=== PATIENT | female | born 1975 | race Caucasian/White ===

== ENCOUNTER 2020-02-13 01:20 | Outpatient (CLI) | payer OTHER, SELFPAY ==
[2020-02-13 19:20] LABS: SARS-CoV-2 RNA PCR Negative
== END 2020-02-13 01:21 | disposition home or self-care (01) ==
LOC: ANHCOVIDDT 01:20
PROVIDERS: PCP Family Medicine; Visit Provider Internal Medicine Gastroenterology
DX: Z01.812 Encounter for preprocedural laboratory examination (principal); Z20.828 Contact with and (suspected) exposure to other viral communicable diseases
CPT/HCPCS: 87635; C9803; U0003

== ENCOUNTER 2020-02-15 01:10 | Day surgery (SDC) | payer OTHER, SELFPAY ==
[2020-02-08 10:27] VITALS: BMI 31.7
[2020-02-15 10:56] VITALS: BP 134/79; PULSE 74; RESP 18; TEMP 36.6; O2SAT 97; BMI 41.4
--- NOTE | 2020-02-15 11:00 | P.PNAN_ITS ---
Anes - Initial Pre Proc Eval Procedure: Operation Date: 02/15/20 12:00 Proposed Procedures p Esophagogastroduodenoscopy & Colonoscopy - Manuel Huynh MD Date/Time: 02/15/20 11:00 Surgeon: Manuel Huynh MD Pre Op Diagnosis: Constipation/ Bright Red Blood Per Rectum/Nausea Patient Data Age: 44 Gender: F Height: 1.7 m Weight: 92 kg Allergies Allergy/AdvReac Type Severity Reaction Status Date / Time ciprofloxacin Allergy Unknown swollen Verified 02/15/20 10:50 tendons codeine Allergy Unknown sick Verified 02/15/20 10:50 Home Medications Medication Instructions Recorded Confirmed Type levothyroxine 150 mcg tablet 150 mcg PO DAILY #90 each 08/07/19 02/15/20 Rx clonazepam 0.5 mg tablet 0.5 mg PO DAILY PRN #30 tablet 01/01/20 02/08/20 Rx gabapentin 300 mg capsule 1,200 mg PO BID #240 cap 01/03/20 02/15/20 Rx peg 3350-electrolytes 236 240 ml PO Q10M #4000 ml 01/28/20 Rx gram-22.74 gram-6.74 gram-5.86 gram solution kzagyfc-bpackngpkcshm-qfmysrvx 1 tablet PO Q4-6H PRN 02/08/20 02/08/20 History [Excedrin Extra Strength] naproxen-pseudoephedrine [Aleve-D 1 tablet PO BID PRN 02/08/20 02/08/20 History Sinus and Headache] ondansetron HCl 8 mg PO .Q-8 PRN 02/08/20 02/08/20 History venlafaxine 150 mg 150 mg PO DAILY #90 each 02/14/20 02/15/20 Rx capsule,extended release 24 hr Patient hx anesthesia problems: none Family hx anesthesia problems: none PMFSH Social History Social History Smoking status: Never smoker Alcohol intake: current Drinks per week: 4 Alcohol use details: GLASSES WINE Substance use: never Substance use type: does not use Living arrangements: with family Gender identity (if verbalized by the patient): Female Spiritual care concerns: No Anes - Eval Final PreProcedure Day of Procedure 02/15/20 11:00 Patient weight: obese Heart: regular rate and rhythm Lungs: clear to auscultation and normal air movement Airway: Mallampati scale class II Neurological: alert and oriented Last oral intake: >/= 8 hours ASA classification: II Emergent: no Anesthetic plan: proceed Anesthesia type and monitoring: general GIVS Informed Consent: The patient's anesthetic plan and its attendant risks and kaveh efits were discussed with the patient/family/POA. Questions were solicited and answers provided to the satisfaction of the patient/family/POA.
[2020-02-15] MEDS: LACTATED RINGERS 1,000 ML 150 ML IV CONT (11:02)
--- NOTE | 2020-02-15 12:15 | PM.HPGS ---
History of Present Illness History of Present Illness Consent: Risks, benefits, and alternatives have been discussed and questions answered. Patient agrees to proceed with procedure. Chief complaint: Constipation/ Bright Red Blood Per Rectum/Nausea Narrative: Rajni Mixon is a 44 year old female with gerd and need for colon screening. Review of Systems Constitutional: Constitutional: Denies headache(s) and Denies weakness Eyes: Eyes: Denies blurry vision ENT: Reports Normal hearing present, Denies headache(s) and Denies neck pain Cardiovascular: Cardiovascular: Denies chest pain and Denies dyspnea Respiratory: Respiratory: Denies dyspnea Gastrointestinal: Gastrointestinal: Reports no additional gastrointestinal complaints Genitourinary: Genitourinary: Denies dysuria Musculoskeletal: Musculoskeletal: Denies neck pain Integumentary/Breasts: Skin/Breast: Denies dry skin Neurologic: Reports Normal hearing present, Denies headache(s) and Denies weakness Psychiatric: Psychiatric: Denies anxiety Endocrine: Endocrine: Denies change in body appearance Hematologic/Lymphatic: Hematologic/Lymphatic: Denies easy bleeding Allergic/Immunologic: Allergic/Immunologic: Denies urticaria PMFSH Social History Social History Smoking status: Never smoker Alcohol intake: current Drinks per week: 4 Alcohol use details: GLASSES WINE Substance use: never Substance use type: does not use Living arrangements: with family Gender identity (if verbalized by the patient): Female Spiritual care concerns: No Meds Home Medications and Allergies Home Medications Medication Instructions Recorded Confirmed Type levothyroxine 150 mcg tablet 150 mcg PO DAILY #90 each 08/07/19 02/15/20 Rx clonazepam 0.5 mg tablet 0.5 mg PO DAILY PRN #30 tablet 01/01/20 02/08/20 Rx gabapentin 300 mg capsule 1,200 mg PO BID #240 cap 01/03/20 02/15/20 Rx peg 3350-electrolytes 236 240 ml PO Q10M #4000 ml 01/28/20 Rx gram-22.74 gram-6.74 gram-5.86 gram solution rwiqmbu-rspbuimcugnat-rhrqucqu 1 tablet PO Q4-6H PRN 02/08/20 02/08/20 History [Excedrin Extra Strength] naproxen-pseudoephedrine [Aleve-D 1 tablet PO BID PRN 02/08/20 02/08/20 History Sinus and Headache] ondansetron HCl 8 mg PO .Q-8 PRN 02/08/20 02/08/20 History venlafaxine 150 mg 150 mg PO DAILY #90 each 02/14/20 02/15/20 Rx capsule,extended release 24 hr Allergies Allergy/AdvReac Type Severity Reaction Status Date / Time ciprofloxacin Allergy Unknown swollen Verified 02/15/20 10:50 tendons codeine Allergy Unknown sick Verified 02/15/20 10:50 Vital Signs Vital Signs - 24 hr 02/15/20 10:56 Temperature 97.8 F Pulse Rate 74 Respiratory Rate 18 Blood Pressure 134/79 Pulse Oximetry 97 Exam Const: General: comfortable and no acute distress HENMT: General nose exam: Normal nares present Eyes: General: appearance normal, both eyes and all related structures Neck: Neck: no JVD Resp: Auscultation: clear to auscultation bilaterally Cardio: Rate: regular rate Rhythm: regular rhythm GI: Inspection: non-distended GI Palp: Yes Soft to palpation Skin: General skin exam: normal color Neuro: General: gait normal Speech: normal speech Extrem: General: normal to inspection Psych: Mental Status: mental status grossly normal Assessment and Plan Assessment and plan (1) Nausea: Code(s): R11.0 - Nausea Status: Acute Assessment and Plan: egd (2) GERD (gastroesophageal reflux disease): Code(s): K21.9 - Gastro-esophageal reflux disease without esophagitis Status: Acute (3) Colon cancer screening: Code(s): Z12.11 - Encounter for screening for malignant neoplasm of colon Status: Acute Assessment and Plan: proceed with colonoscopy
[2020-02-15] MEDS: BENZOCAINE (*SP) 60 ML SPRAY CAN (HURRICAINE) 1 SPRAY MUCOUS MEM (12:40)
[2020-02-15 12:42] VITALS: BP 125/78; PULSE 83; RESP 14; O2SAT 97
[2020-02-15 12:52] VITALS: BP 127/87; PULSE 71; RESP 14; O2SAT 97
[2020-02-15 13:02] VITALS: BP 137/94; PULSE 67; RESP 13; O2SAT 97
== END 2020-02-15 13:27 | disposition home or self-care (01) ==
PROVIDERS: PCP Family Medicine; Visit Provider Internal Medicine Gastroenterology
PROC: 0DJ08ZZ Inspection of Upper Intestinal Tract, Via Natural or Artificial Opening Endoscopic (ICD-10-PCS; CPT 43235; principal; 2020-02-15 12:00)
DX: Z12.11 Encounter for screening for malignant neoplasm of colon (principal); D12.5 Benign neoplasm of sigmoid colon; K57.30 Diverticulosis of large intestine without perforation or abscess without bleeding; K64.8 Other hemorrhoids; R11.0 Nausea; K21.9 Gastro-esophageal reflux disease without esophagitis; K25.9 Gastric ulcer, unspecified as acute or chronic, without hemorrhage or perforation; K29.50 Unspecified chronic gastritis without bleeding
CPT/HCPCS: 45385; 43239; 88305; J2704; J7120

== ENCOUNTER 2020-04-29 06:52 | Outpatient (NON) | payer OTHER, SELFPAY ==
[2020-04-30 10:35] LABS: Influenza Control Positive
== END 2020-04-29 06:53 ==
LOC: ANHCOVIDDT 07:12
PROVIDERS: PCP Family Medicine; Visit Provider Family Medicine
DX: J02.9 Acute pharyngitis, unspecified (principal)
CPT/HCPCS: 87804

== ENCOUNTER 2020-06-26 08:48 | Emergency (ER) | payer OTHER, SELFPAY ==
--- NOTE | ~2020-06-26 | XR_ITS ---
EXAMINATION: XR chest 1V portable EXAM DATE: 06/26/2020 10:18 INDICATION: Shortness of breath, high blood pressure. TECHNIQUE: Portable AP frontal chest x-ray was obtained. There is no prior study for comparison. FINDINGS: The lungs are clear. There are no pleural effusions. The cardiomediastinal silhouette is within normal limits. There is no pneumothorax suspected. The bones and soft tissues are unremarkab le. IMPRESSION: Unremarkable chest x-ray exam. Reviewed, dictated and finalized at location A. EXPANDER
[2020-06-26 08:57] VITALS: BP 186/114; PULSE 88; RESP 16; TEMP 35.9; O2SAT 97
--- NOTE | 2020-06-26 09:10 | ECG_ITS ---
Measurements Intervals [place] Rate: 74 P: 27 NH: 176 QRS: 4 QRSD: 102 T: 28 QT: 377 QTc: 420 Interpretive Statements SINUS RHYTHM NORMAL ECG Electronically Signed On 06-26-2020 10:27:49 OTOLARYNGOLOGY PHYSICIAN by Kwadwo Quiñonez D.O.
[2020-06-26 09:17] LABS: Basophils Absolute Auto 0.1 K/mm3 (0.0-0.1); Basophils Percent Auto 0.7 % (0.2-1.2); Eosinophils Absolute Auto 0.2 K/mm3 (0-0.3); Hematocrit 43.6 % (37.0-47.0); Hemoglobin 14.6 g/dL (12.0-15.0); Immature Granulocyte Absolute 0.03 K/mm3 (0.00-0.031); Immature Granulocyte Percent A 0.4 % (0-0.5); Lymphocytes Absolute Auto 2.95 K/mm3 (0.9-3.2); Lymphocytes Percent Auto 35.2 % (18.3-44.2); Mean Corpuscular HGB Conc 33.5 g/dl (32-36); Mean Corpuscular Hemoglobin 30.9 pg (26-34); Mean Corpuscular Volume 92.4 fl (80-100); Mean Platelet Volume 9.6 fl (7.4-10.4); Monocytes Absolute Auto 0.5 K/mm3 (0.1-0.6); Neutrophils Absolute Auto 4.7 K/mm3 (1.3-6.7); Neutrophils Percent Auto 55.7 % (45.5-73.1); Platelet Count Result 309 k/mm3 (150-375); Red Blood Count 4.72 M/mm3 (4.2-5.4); Red Cell Distribution Width 12.6 % (11.5-14.5); White Blood Count 8.4 K/mm3 (4.5-10.0)
[2020-06-26] MEDS: SODIUM CHLORIDE 0.9% IV 1,000 ML 999 ML IV CONT (09:50)
[2020-06-26 09:58] LABS: Basophils Absolute Auto 0.1 K/mm3 (0.0-0.1); Basophils Percent Auto 0.9 % (0.2-1.2); Eosinophils Absolute Auto 0.1 K/mm3 (0-0.3); Eosinophils Percent Auto 1.9 % (0-4.4); Hematocrit 40.8 % (37.0-47.0); Hemoglobin 13.6 g/dL (12.0-15.0); Immature Granulocyte Absolute 0.02 K/mm3 (0.00-0.031); Immature Granulocyte Percent A 0.3 % (0-0.5); Lymphocytes Absolute Auto 2.25 K/mm3 (0.9-3.2); Lymphocytes Percent Auto 32.9 % (18.3-44.2); Mean Corpuscular HGB Conc 33.3 g/dl (32-36); Mean Corpuscular Hemoglobin 30.7 pg (26-34); Mean Corpuscular Volume 92.1 fl (80-100); Mean Platelet Volume 9.3 fl (7.4-10.4); Monocytes Absolute Auto 0.5 K/mm3 (0.1-0.6); Monocytes Percent Auto 6.6 % (2.6-8.5); Neutrophils Absolute Auto 3.9 K/mm3 (1.3-6.7); Neutrophils Percent Auto 57.4 % (45.5-73.1); Platelet Count Result 261 k/mm3 (150-375); Red Blood Count 4.43 M/mm3 (4.2-5.4); Red Cell Distribution Width 12.6 % (11.5-14.5); White Blood Count 6.8 K/mm3 (4.5-10.0)
[2020-06-26 10:08] LABS: Alanine Aminotransferase 30 U/L (4-35); Alkaline Phosphatase 74 U/L (38-126); Anion Gap 5 mmol/L (8-16); Aspartate Amino Transferase 31 U/L (14-36); Bilirubin,Total 0.5 mg/dL (0.2-1.3); Blood Urea Nitrogen 8 mg/dL (7-17); CRP 1.1 mg/dL (<1.0); Calcium 8.5 mg/dL (8.4-10.2); Carbon Dioxide 27 mmol/L (22-30); Chloride 105 mmol/L (98-107); Estimated CRCL calculation 105 ml/min; Estimated Glomerular Filt Rate > 60; Glucose 121 mg/dL (65-105); Lipase 101 U/L (23-300); Sodium 137 mmol/L (137-145)
[2020-06-26 10:17] LABS: INR 0.9; Prothrombin Time 12.8 Seconds (11.1-14.7)
[2020-06-26 10:22] LABS: Troponin I < 0.012 ng/mL (0.000-0.034)
[2020-06-26 10:35] LABS: Partial Thromboplastin Time 25.2 SECONDS (22.3-36.8)
[2020-06-26 10:41] LABS: Add Urine Microscopic? YES; Appearance Urine Clear (Clear); Bacteria Urine Trace /hpf; Bilirubin Urine Negative (Negative); Blood Urine Negative (Negative); Color Urine Yellow (Yellow); Glucose Urine UA Negative (Negative); Ketones Urine Negative (Negative); Leukocyte Esterase Ur Negative LEU/UL (Negative); Mucus Urine Rare /lpf; Nitrate Urine Negative (Negative); Protein Urine 1+ mg/dL (Negative); Specific Grav Ur 1.021 (1.001-1.035); Squamous Epithelial Cell Urine Many /hpf (Few); Urobilinogen Urine Negative mg/dL (<2.0)
--- NOTE | 2020-06-26 11:20 | ED.GENADULT ---
HPI - General Adult General Chief complaint: Dizziness Stated complaint: Dizzy Time Seen by Provider: 06/26/20 09:07 Source: patient Mode of arrival: ambulatory Limitations: no limitations History of Present Illness HPI narrative: Patient is a 45-year-old female who presents with mild upper respiratory symptoms for the last several days starting with ear discomfort on the left and is now having some mild dizziness congestion slight discomfort of the throat nonproductive cough patient notes some nausea which she describes as chronic denies vomiting diarrhea rectal bleeding melena denies urinary symptoms but notes history of urinary tract infections. Patient on arrival is nondistressed resting comfortably in the room Related Data Home Medications Medication Instructions Recorded Confirmed faerxax-amnylypiwkkkh-lixncbmc 1 tablet PO Q4-6H PRN 02/08/20 02/08/20 [Excedrin Extra Strength] Allergies Allergy/AdvReac Type Severity Reaction Status Date / Time ciprofloxacin Allergy Unknown swollen Verified 06/26/20 08:59 tendons codeine Allergy Unknown sick Verified 06/26/20 08:59 Review of Systems Review of Systems: All systems reviewed & are unremarkable except as noted in HPI and below PMFSH Past Medical History Medical History Anxiety BRBPR (bright red blood per rectum) Chronic constipation Colon cancer screening GERD (gastroesophageal reflux disease) Nausea Surgical History Surgical History H/O section Family History Family History Grandparent Family history of cardiovascular disease Cerebrovascular accident Family history of malignant neoplasm of brain Social History Social History Smoking status: Never smoker Alcohol intake: current Drinks per week: 4 Substance use: never Substance use type: does not use Gender identity (if verbalized by the patient): Female Spiritual care concerns: No Exam Narrative: Exam Narrative: GENERAL: Well-appearing, obese, and in no acute distress. HEAD: Normocephalic, atraumatic. EYES: PERRLA and EOMI. ENT: Nares clear, no rhinorrhea or epistaxis. Mucous membranes moist. CHEST: Clear to auscultation. No respiratory distress. No wheezes rales or rhonchi HEART: Regular rate and rhythm. No murmur heard. Normal peripheral pulses. ABDOMEN: Soft, nontender, distended EXTREMITIES: Normal range of motion. No edema. SKIN: Warm, dry, no rash. NEURO: No focal deficits. Alert and oriented x3. Cranial nerves II through XII grossly intact PSYCH: Normal mood and affect. Course Course Emergency Course: Patient in the room evaluated for his symptoms no high risk changes in the blood work or imaging will be sent home with plan for further evaluation by her primary care was swabbed for Covid will self quarantine until she has received results provided with reasons to return felt appropriate for outpatient reevaluation of her URI symptoms Vital Signs Vital signs: Vital Signs Temperature 96.6 F L 06/26/20 08:57 Pulse Rate 88 06/26/20 08:57 Respiratory Rate 16 06/26/20 08:57 Blood Pressure 186/114 H 06/26/20 08:57 Pulse Oximetry 97 06/26/20 08:57 Temperature 96.6 F L 06/26/20 08:57 Pulse Rate 88 06/26/20 08:57 Respiratory Rate 16 06/26/20 08:57 Blood Pressure 186/114 H 06/26/20 08:57 Pulse Oximetry 97 06/26/20 08:57 Medical Decision Making MDM Narrative Medical decision making narrative: Patient with normal vital signs ABCs intact and stable felt appropriate for outpatient reevaluation no hypoxemia no high risk changes in the blood work or imaging will be advised to follow with primary care for further evaluation at this time patient presented with URI symptoms and will be managed for these as the
[2020-06-26 11:52] VITALS: BP 157/99; PULSE 72; RESP 12; O2SAT 99
[2020-06-27 01:27] LABS: SARS-CoV-2 RNA PCR Negative
== END 2020-06-26 11:54 | disposition home or self-care (01) ==
PROVIDERS: Emergency Medicine Emergency Medical Services; Emergency Provider Emergency Medicine; PCP Family Medicine
DX: J06.9 Acute upper respiratory infection, unspecified (principal); Z20.822 Contact with and (suspected) exposure to COVID-19; K21.9 Gastro-esophageal reflux disease without esophagitis
CPT/HCPCS: 36415; 71045; 80053; 81001; 83690; 84484; 85025; 85610; 85730; 86140; 93005; 96360; 96361; 99284; C9803; J7030; U0003; U0005

== ENCOUNTER 2021-04-14 10:05 | Emergency (ER) | payer OTHER, SELFPAY ==
--- NOTE | ~2021-04-14 | XR_ITS ---
EXAMINATION: XR chest 1V portable DATE: 04/14/2021 12:08 INDICATION: Shortness of breath and cough. TECHNIQUE: A single frontal view of the chest was obtained. COMPARISON: Chest single view 06/26/2020 FINDINGS: The chest demonstrates clear lungs without pneumonia, pleural effusion, or pneumothorax. Th e heart size is normal. IMPRESSION: 1. No acute cardiopulmonary disease. Reviewed, dictated and finalized at location A. [employer]BLER
[2021-04-14 10:08] VITALS: BP 181/101; PULSE 88; RESP 16; TEMP 36.7; O2SAT 98
[2021-04-14 12:29] LABS: Basophils Percent Auto 0.4 % (0.2-1.2); Eosinophils Absolute Auto 0.1 K/mm3 (0-0.3); Eosinophils Percent Auto 0.8 % (0-4.4); Hematocrit 42.7 % (37.0-47.0); Hemoglobin 14.2 g/dL (12.0-15.0); Immature Granulocyte Absolute 0.01 K/mm3 (0.00-0.031); Immature Granulocyte Percent A 0.1 % (0-0.5); Lymphocytes Absolute Auto 3.44 K/mm3 (0.9-3.2); Lymphocytes Percent Auto 46.1 % (18.3-44.2); Mean Corpuscular HGB Conc 33.3 g/dl (32-36); Mean Corpuscular Hemoglobin 31.1 pg (26-34); Mean Corpuscular Volume 93.6 fl (80-100); Mean Platelet Volume 8.8 fl (7.4-10.4); Monocytes Absolute Auto 0.5 K/mm3 (0.1-0.6); Neutrophils Absolute Auto 3.4 K/mm3 (1.3-6.7); Neutrophils Percent Auto 45.6 % (45.5-73.1); Platelet Count Result 243 k/mm3 (150-375); Red Blood Count 4.56 M/mm3 (4.2-5.4); Red Cell Distribution Width 12.4 % (11.5-14.5); White Blood Count 7.5 K/mm3 (4.5-10.0)
[2021-04-14 12:33] LABS: Add Urine Microscopic? YES; Appearance Urine Cloudy (Clear); Bilirubin Urine Negative (Negative); Blood Urine Negative (Negative); Color Urine Yellow (Yellow); Glucose Urine UA Negative (Negative); Ketones Urine Negative (Negative); Leukocyte Esterase Ur Negative LEU/UL (Negative); Nitrate Urine Negative (Negative); Protein Urine 1+ mg/dL (Negative); Specific Grav Ur 1.019 (1.001-1.035); Squamous Epithelial Cell Urine Few /hpf (Few); WBC Urine 0-3 /hpf
[2021-04-14 12:34] LABS: Alanine Aminotransferase 41 U/L (4-35); Albumin Level 4.4 g/dL (3.5-5.1); Alkaline Phosphatase 74 U/L (38-126); Anion Gap 8 mmol/L (8-16); Aspartate Amino Transferase 44 U/L (14-36); Bilirubin,Total 0.5 mg/dL (0.2-1.3); Blood Urea Nitrogen 7 mg/dL (7-17); Calcium 8.7 mg/dL (8.4-10.2); Carbon Dioxide 25 mmol/L (22-30); Chloride 103 mmol/L (98-107); Estimated CRCL calculation 114 ml/min; Estimated Glomerular Filt Rate > 60; Glucose 112 mg/dL (65-110); Potassium 3.9 mmol/L (3.4-5.0); Sodium 136 mmol/L (137-145)
--- NOTE | 2021-04-14 14:02 | ED.URI ---
HPI - URI/Sore Throat General Chief Complaint: Upper Respiratory Infection Stated Complaint: flu like symptoms Time Seen by Provider: 04/14/21 11:08 Source: patient Mode of arrival: ambulatory Limitations: no limitations History of Present Illness HPI Narrative: 45-year-old with no major medical problems here with complaints of sore throat, ear pain, body aches fever and chills for past 1 week. She states that 7-year-old has URI symptoms. 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 She also states that she has been immunized against Covid. MD elicited complaint: fever, cough, sore throat, rhinorrhea and nasal congestion Onset (ago): week(s) (1) Consistency: constant Description of mucous: watery Able to tolerate fluids by mouth: Yes Exacerbating factors: nothing Relieving factors: nothing Associated symptoms: fever, chills, rhinorrhea and nasal congestion Treatments prior to arrival: none Related Data Home Medications Medication Instructions Recorded Confirmed nrofsqr-jhrnjfjdpussj-fkniqchb 1 tablet PO Q4-6H PRN 02/08/20 10/06/20 [Excedrin Extra Strength] Allergies Allergy/AdvReac Type Severity Reaction Status Date / Time ciprofloxacin Allergy Unknown swollen Verified 04/14/21 11:29 tendons codeine Allergy Unknown sick Verified 04/14/21 11:29 Review of Systems Review of Systems: All systems reviewed & are unremarkable except as noted in HPI and below Constitutional: Constitutional: Reports no additional constitutional complaints Eyes: Eyes: Reports no additional eye complaints ENT: Reports as per HPI Cardiovascular: Cardiovascular: Reports no additional cardiovascular complaints Respiratory: Respiratory: Reports cough Gastrointestinal: Gastrointestinal: Reports no additional gastrointestinal complaints Genitourinary: Genitourinary: Reports no additional female genitourinary complaints Musculoskeletal: Musculoskeletal: Reports no additional musculoskeletal complaints Integumentary/Breasts: Skin/Breast: Reports system reviewed and no additional complaints, except as docu Neurologic: Reports system reviewed and no additional complaints, except as documented Psychiatric: Psychiatric: Reports no additional psychiatric complaints Endocrine: Endocrine: Reports no additional endocrine complaints Hematologic/Lymphatic: Hematologic/Lymphatic: Reports no additional hematologic/lymphatic complaints PMFSH Past Medical History Medical History Anxiety BRBPR (bright red blood per rectum) Chronic constipation Colon cancer screening GERD (gastroesophageal reflux disease) Hypothyroid Nausea Surgical History Surgical History H/O section Family History Family History Grandparent Family history of cardiovascular disease Cerebrovascular accident Family history of malignant neoplasm of brain Social History Social History Smoking status: Never smoker Second hand tobacco smoke exposure: No Alcohol intake: current Drinks per week: 4 Alcohol use details: GLASSES WINE Substance use: never Substance use type: does not use Gender identity (if verbalized by the patient): Female Spiritual care concerns: No Agree to blood products: Yes Exam Narrative: GENERAL: Well-appearing, well-nourished, and in no acute distress. HEAD: Normocephalic, atraumatic. EYES: PERRLA and EOMI. ENT: Both TMs are normal NECK: Supple. CHEST: Clear to auscultation. No respiratory distress. HEART: Regular rate and rhythm. No murmur heard. Normal peripheral pulses. ABDOMEN: Soft, nontender, nondistended, normal active bowel sounds. EXTREMITIES: Normal range of motion. No edema. SKIN: Warm,
[2021-04-14] MEDS: HYDROmorphone HCL INJ (*CRX) 1 MG/ML SYR IM (14:10)
[2021-04-14 14:11] VITALS: BP 141/62; PULSE 82; RESP 16; TEMP 37.1; O2SAT 100
== END 2021-04-14 14:12 | disposition home or self-care (01) ==
PROVIDERS: Emergency Provider Family Medicine; PCP Family Medicine
DX: J06.9 Acute upper respiratory infection, unspecified (principal); B34.9 Viral infection, unspecified; K21.9 Gastro-esophageal reflux disease without esophagitis; E03.9 Hypothyroidism, unspecified
CPT/HCPCS: 36415; 71045; 80053; 81001; 85025; 96372; 99283; J1170

== ENCOUNTER 2024-12-20 02:06 | Day surgery (SDC) | payer OTHER, SELFPAY ==
--- OUTSIDE RECORDS SUMMARY | 2024-12-20 02:08 | XMS_ITS | Encounter Summary ---
Author Organization [facility] Address [facility] [place] [address] Care Team Providers Care Certified Personal Trainer Name Role Phone Armando Mendoza DESKIDDING MACHINE OPERATOR Primary Care Provider Unavail able Eryn Jennings DO Primary Care Provider [phone] Encounter Details Date Type Department Care Team (Late st Contact Info) Description 03/16/2016 Abstract [facility] CONVERSION [address] [place] [address] , Generic Conversion, Social History Tobacco Use Types Packs/Day Years Used Date Smoking Tobacco: Never Assessed Comments Unknown Sex and Gender Information Value Date Recorded Sex Assigned at Not on file Legal Sex Female 7:52 PM CDT Gender Identity Not on file Sexual Orientation Not on file documented as of this encounter Plan of Treatment Not on file documented as of this encounter Visit Diagnoses Not on filedocumented in this encounter Care Teams Certified Personal Trainer Relationship Specialty Start Date End Date Armando Mendoza NP PCP - General 02/10/16 04/16/19 Eryn Jennings DO PCP - General FAMILY PRACTICE 04/17/19 documented as of this encounter
--- OUTSIDE RECORDS SUMMARY | 2024-12-20 02:08 | XMS_ITS | Clinical Summary ---
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 Gender Identity Not on file Sexual Orientation Not on file Plan of Treatment Health Maintenance Due Date Last Done Comments Hepatitis C Virus (HCV) Screening 1973 TdaP Immunization 1973 Hepatitis B Immunization (1 of 3 - 19+ 3-dose series) 1992 Pap Smear 1994 Cervical Cancer Screening (CCS) 2003 HPV/Cotest 2003 Colonoscopy 2018 Colorectal Cancer Screening 2018 Cologuard 2023 Immunochemical Fecal Occult Blood 2023 Mammogram 2023 Pneumococcal Immunization (5 0+ years) (1 of 1 - PCV) 2023 Zoster Immunization (1 of 2) 2023 Influenza Immunization (#1) 2024 SARS-COV-2 Immunization ( - 2023- season) 2024 06/13/2020, 05/23/2020 Respiratory Syncytial Virus (RSV) Immunization (Adult) (1 - 1-dose 75+ series) 2048 Meningococcal Immunization (ACWY) Aged Out No longer eligible b ased on patient's age to complete this topic Pneumococcal Immunization Combined Aged Out No longer eligible b ased on patient's age to complete this topic Rotavirus Immunization Aged Out No lo nger eligible based on patient's age to complete this topic
--- OUTSIDE RECORDS SUMMARY | 2024-12-20 02:08 | XMS_ITS | Clinical Summary ---
Author Organization [facility] Address [facility] [place] [address] Care Team Providers Care Hand Cooper Helper Name Role Phone Eryn Jennings DO Primary Care Provider [phone] Allergies Active Allergy Reactions Criticality Noted Date Comments Ciprofloxacin Other (see comment) 04/17/2019 Tendons ruptured Medications gabapentin 300 MG capsule TAKE 4 CAPSULES BY MOUTH TWICE DAILY 0 04/10/2019 Active levothyroxine 150 MCG tablet 03/27/2019 Acti ve venlafaxine XR 75 MG 24 hr capsule Take 1 capsule by mouth daily. 10/22/2015 Active Active Problems Problem Noted Date Diagnosed Date Depression with anxiety 10/22/2015 Overview (04/17/2019): Transitioned From: Adjustment disorder with anxiety Nephrolithiasis 12/09/2014 Hypertension 08/07/2014 Hypothyroidism 08/07/2014 Social History Tobacco Use Types Packs/Day Years Used Date Smoking Tobacco: Never Smokeless Tobacco: Never Alcohol Use Standard Drinks/Week Comments Yes 0 (1 standard drink = 0.6 oz pur e alcohol) AUDIT-C Answer Date Recorded Frequency of Alcohol Consumption Never 04/17/2019 Average Number of Drinks Not on file 019 Frequency of Binge Drinking Not on file 04/06 Comments No Sex and Gender Information Value Date Recorded Sex Assigned at Not on file Legal Sex Female 7:52 PM CDT Gender Identity Not on file Sexual Orientation Not on file Last Filed Vital Signs Vital Sign Reading Time Taken Comments Blood Pressure 138/100 04/17/2019 3:06 PM [employer] SERVICES MANAGER Pulse 84 04/17/2019 3:06 PM [employer] AND [employer] SERVICES MANAGER Temperature 36.9 C (98.5 F) 04/17/2019 3:06 PM CAR[employer] AND R[employer] SERVICES MANAGER Respiratory Rate 18 04/17/2019 3:06 PM [employer] AND R[employer] SERVICES MANAGER Oxygen Saturation 98% 04/17/2019 3:06 PM CAR[employer] AND R[employer] SERVICES MANAGER Inhaled Oxygen Concentration - - Weight 117.2 kg (258 lb 6.4 oz) 04/17/2019 3:06 PM CAR[employer] AND R[employer] SERVICES MANAGER Height 170.2 cm (5' 7) 04/17/2019 3:06 PM CAR[employer] SERVICES MANAGER Body Mass Index 40.47 04/17/2019 3:06 PM CAR[employer] AND R[employer] SERVICES MANAGER Plan of Treatment Health Maintenance Due Date Last Done Comments Cervical Cancer Screening Pa p Smear (Age 30 to 64) Every 3 Years 1973 Colorectal Cancer Screening Colonoscopy (10 Years) 1973 Annual Physical 1976 Hepatitis C 1991 DTaP, Tdap and Td Vaccines ( 1 - Tdap) 1992 Hepatitis B Vaccines (1 of 3 - 19+ 3-dose series) 1992 Cervical Cancer Screening Pa p with HPV Testing (Age 30 to 64) Every 5 Years 2003 Cervical Cancer Screening with HPV 2003 Mammogram Screening 2013 Pneumococcal Vaccine: 50+ Ye ars (1 of 1 - PCV) 2023 Zoster Vaccines (1 of 2) 2023 COVID-19 Vaccine (1 - 2023-2 5 season) 2024 Meningococcal B Vaccine Aged Out No l onger eligible based on patient's age to complete this topic Meningococcal Vaccine Aged Out No luis f cookie eligible based on patient's age to complete this topic RSV Immunizations Under 20 Months Aged Out No longer eligible based on patient's age to complete this topic [place] [address] [place] [address] Care Teams Hand Cooper Helper Relationship Specialty Start Date End Date Eryn Jennings DO PCP - General FAMILY PRACTICE 04/17/19
[2024-12-20 12:02] VITALS: BP 136/98; PULSE 66; RESP 18; TEMP 36.4; O2SAT 100
[2024-12-20 12:07] LABS: BEDSIDEPREGUCG Negative (Negative)
[2024-12-20] MEDS: LACTATED RINGERS 1,000 ML 150 ML IV CONT (12:14)
--- NOTE | 2024-12-20 12:30 | P.PNAN_ITS ---
Anes - Initial Pre Proc Eval Procedure: Operation Date: 12/20/24 13:00 Proposed Procedures p Screening Colonoscopy - Manuel Huynh MD Date/Time: 12/20/24 12:30 Surgeon: Manuel Huynh MD Pre Op Diagnosis: neoplasm screening Patient Data Age: 49 Gender: F Height: 1.7 m Weight: 119.4 kg Last Vital Signs Temp 97.6 F 12/20/24 12:02 Pulse 66 12/20/24 12:02 Resp 18 12/20/24 12:02 BP 136/98 H 12/20/24 12:02 Pulse Ox 100 12/20/24 12:02 O2 Del Method Room Air 12/20/24 12:02 Allergies Allergy/AdvReac Type Severity Reaction Status Date / Time ciprofloxacin Allergy Unknown swollen Verified 12/11/24 11:42 tendons codeine Allergy Unknown sick Verified 12/11/24 11:42 Home Medications ?Medication ?Instructions ?Recorded ?Confirmed ?Type hqwmwyh-rjzmcqlbornbq-ispppsir 250 1 tablet PO Q4-6H PRN Pain 02/08/20 12/11/24 History mg-250 mg-65 mg tablet (Excedrin Extra Strength) sumatriptan succinate 100 mg See Rx Instructions PO .COMPLEX 12/29/21 12/11/24 Rx tablet (Imitrex) #27 tabs gabapentin 300 mg capsule See Rx Instructions .Route 04/25/23 12/20/24 Rx .COMPLEX #360 caps amlodipine 5 mg tablet 5 mg PO DAILY #90 tabs 09/13/24 12/20/24 Rx levothyroxine 137 mcg tablet 137 mcg PO DAILY #90 tabs 09/13/24 12/20/24 Rx ondansetron HCl 8 mg tablet See Rx Instructions .Route 09/18/24 12/11/24 Rx .COMPLEX #30 tabs venlafaxine 75 mg capsule,extended 225 mg (3 x 75 mg) PO DAILY #270 10/15/24 12/20/24 Rx release 24 hr caps clonazepam 1 mg tablet 1 mg PO Q12H PRN anxiety #30 tabs 12/10/24 12/20/24 Rx gabapentin 600 mg tablet See Rx Instructions .Route 12/10/24 12/20/24 Rx .COMPLEX #120 tabs Laboratory Tests 12/20/24 12:05 POC Urine HCG, Qual Negative (Negative) Patient hx anesthesia problems: none Family hx anesthesia problems: none Results Review: All pre-operative results and documents have been reviewed as part of the pre- operative evaluation. [facility] Past Medical History Medical History Hypothyroid Anxiety GERD (gastroesophageal reflux disease) Chronic constipation Nausea Surgical History Surgical History H/O section Family History Family History Grandparent Family history of cardiovascular disease Cerebrovascular accident Family history of malignant neoplasm of brain Social History Social History Social History: 09/10/24 very confident with medical forms Smoking status: Never smoker Second hand tobacco smoke exposure: No Alcohol intake: current Drinks per week: 2 Alcohol use details: GLASSES WINE Substance use: never Substance use type: does not use Do You Feel Safe in your Home?: Yes Lack of Transportation: No Lack of Food: Never True Current Housing: I Have Housing Concerned About Future Housing: No Difficulty Paying Gas/Electric Bills: No Difficulty Paying for Meds: No Currently Unemployed: No Education: Bachelor's Degree Difficulty w/ Childcare or Family Care: No Living arrangements: with family Occupation/Education: occupation Gender identity (if verbalized by the patient): Female Spiritual care concerns: No Agree to blood products: Yes Anes - Eval Final PreProcedure Day of Procedure 12/20/24 12:30 Patient weight: morbidly obese Lungs: normal air movement Airway: Mallampati scale class II Neurological: alert and oriented Last oral intake: >/= 8 hours ASA classification: III Emergent: no Anesthetic plan: proceed Anesthesia type and monitoring: general GIVS and standard monitoring Results Review: All pre-operative results and documents have been reviewed as part of the pre- operative evaluation. BMI 41, HTN, hypothyroidism, walks several miles, 4 x week, no cp or sob. Informed Consent: The patient's anesthetic plan and its attendant risks and benefits were discu ssed with the patient/family/POA. Questions were solicited and answers provided to the satisfaction of the patient/family/POA.
--- NOTE | 2024-12-20 12:43 | PM.HPGS ---
History of Present Illness History of Present Illness Consent: Risks, benefits, and alternatives have been discussed and questions answered. Patient agrees to proceed with procedure. Chief complaint: neoplasm screening Narrative: Rajni Mixon is a 49 year old female with colon polyp in 2019 Review of Systems Review of Systems: All systems reviewed & are unremarkable except as noted in HPI and below PMFSH Past Medical History Medical History (Updated 12/20/24 @ 12:45 by Manuel Huynh MD) Colon polyp Hypothyroid Anxiety GERD (gastroesophageal reflux disease) Chronic constipation Nausea Surgical History Surgical History H/O section Family History Family History Grandparent Family history of cardiovascular disease Cerebrovascular accident Family history of malignant neoplasm of brain Social History Social History Social History: 09/10/24 very confident with medical forms Smoking status: Never smoker Second hand tobacco smoke exposure: No Alcohol intake: current Drinks per week: 2 Alcohol use details: GLASSES WINE Substance use: never Substance use type: does not use Do You Feel Safe in your Home?: Yes Lack of Transportation: No Lack of Food: Never True Current Housing: I Have Housing Concerned About Future Housing: No Difficulty Paying Gas/Electric Bills: No Difficulty Paying for Meds: No Currently Unemployed: No Education: Bachelor's Degree Difficulty w/ Childcare or Family Care: No Living arrangements: with family Occupation/Education: occupation Gender identity (if verbalized by the patient): Female Spiritual care concerns: No Agree to blood products: Yes Meds Home Medications and Allergies Home Medications ?Medication ?Instructions ?Recorded ?Confirmed ?Type dscdbfn-kxlqogjyeubeb-cctyjisx 250 1 tablet PO Q4-6H PRN Pain 02/08/20 12/11/24 History mg-250 mg-65 mg tablet (Excedrin Extra Strength) sumatriptan succinate 100 mg See Rx Instructions PO .COMPLEX 12/29/21 12/11/24 Rx tablet (Imitrex) #27 tabs gabapentin 300 mg capsule See Rx Instructions .Route 04/25/23 12/20/24 Rx .COMPLEX #360 caps amlodipine 5 mg tablet 5 mg PO DAILY #90 tabs 09/13/24 12/20/24 Rx levothyroxine 137 mcg tablet 137 mcg PO DAILY #90 tabs 09/13/24 12/20/24 Rx ondansetron HCl 8 mg tablet See Rx Instructions .Route 09/18/24 12/11/24 Rx .COMPLEX #30 tabs venlafaxine 75 mg capsule,extended 225 mg (3 x 75 mg) PO DAILY #270 10/15/24 12/20/24 Rx release 24 hr caps clonazepam 1 mg tablet 1 mg PO Q12H PRN anxiety #30 tabs 12/10/24 12/20/24 Rx gabapentin 600 mg tablet See Rx Instructions .Route 12/10/24 12/20/24 Rx .COMPLEX #120 tabs Allergies Allergy/AdvReac Type Severity Reaction Status Date / Time ciprofloxacin Allergy Unknown swollen Verified 12/11/24 11:42 tendons codeine Allergy Unknown sick Verified 12/11/24 11:42 Vital Signs Vital Signs - 24 hr 12/20/24 12:02 Temperature 97.6 F Pulse Rate 66 Respiratory Rate 18 Blood Pressure 136/98 H Pulse Oximetry 100 Oxygen Delivery Room Air Exam Const: General: comfortable and no acute distress HENMT: Face/Nose/Sinus: Normal nares present Eyes: General: appearance normal, both eyes and all related structures Neck: Neck: no JVD Resp: Auscultation: clear to auscultation bilaterally Cardio: Rate: regular rate Rhythm: regular rhythm GI: Inspection: non-distended GI Palp: Yes Soft to palpation Skin: General skin exam: normal color Neuro: General: gait normal Speech: normal speech Extrem: General: normal to inspection Psych: Mental Status: mental status grossly normal Assessment and Plan Assessment and plan (1) Colon polyp: Code(s): K63.5 - Polyp of colon Status: Acute Assessment and Plan: colonoscopy
--- NOTE | 2024-12-20 13:03 | S_PTH ---
PATIENT: Rajni Mixon LOC: [facility]#:[id number] AGE/SX: 49/F ROOM: RE12/20/[address]: Manuel Huynh MD : 1975 BED: DIS: 12/20/2024 SPEC #: [id number] RECD: 12/20/24 13:53 STATUS: ANDREW REQ #: [id number] PRUDENCIO: 12/20/24 13:[address]: Manuel Huynh DEPT: [facility] Surgical RECD BY: Lory Weems ENTERED: 12/20/24 13:53 SP TYPE: Surgical OTHR DR: Inge Avina, [place] Tissues: A - Colon Polypectomy Procedures: Hematoxylin and Eosin Stain Gross and Microscopic Level 4
[2024-12-20 13:04] VITALS: BP 108/77; PULSE 81; RESP 17; O2SAT 97
[2024-12-20 13:14] VITALS: BP 115/66; PULSE 69; RESP 13; O2SAT 98
[2024-12-20 13:24] VITALS: BP 139/85; PULSE 72; RESP 14; O2SAT 100
== END 2024-12-20 13:33 | disposition home or self-care (01) ==
PROVIDERS: Anesthesiology; PCP Nurse Practitioner Family; Referring Provider Nurse Practitioner Family; Visit Provider Internal Medicine Gastroenterology
PROC: 0DJD8ZZ Inspection of Lower Intestinal Tract, Via Natural or Artificial Opening Endoscopic (ICD-10-PCS; CPT 45378; principal; 2024-12-20 13:00)
DX: Z12.11 Encounter for screening for malignant neoplasm of colon (principal); D12.4 Benign neoplasm of descending colon; K64.8 Other hemorrhoids; E66.01 Morbid (severe) obesity due to excess calories; Z68.41 Body mass index [BMI] 40.0-44.9, adult
CPT/HCPCS: 45385; 88305; J2003; J2704; J7120